=== PATIENT | female | born 1960 | race African-American/Black ===

== ENCOUNTER 2017-04-12 01:11 | Emergency (ER) | payer OTHER ==
[~2017-04-12] VITALS: Ht 157.5 cm; Wt 102.5 kg
[~2017-04-12 01:11] MED LIST: ALBUTEROL SULF8.5 GM INH; AMOXICILLIN500 MG ORAL; AZITHROMYCIN250 MG ORAL; CYCLOBENZAPRINE10 MG ORAL; HYDROCODON-ACE1 EA15 ORAL; IBUPROFEN600 MG ORAL; KEFLEX500 MG ORAL; NKM; NORCO 5-325 TA1 EACH ORAL; NORCO 5-325 TA1 EACH PO; NORCO1 EA ORAL; PREDNISONE20 MG ORAL
[2017-04-12] MEDS ORDERED: NKM (01:20)
[2017-04-12 01:25] VITALS: BP 166/92
[2017-04-12 01:30] VITALS: BP 159/91
[2017-04-12] MEDS ORDERED: AUGMENTIN 875-1 EAC1 ORAL (01:42)
[2017-04-12] MEDS ORDERED: PSEUDOEPHEDRINE30 MG PO (01:42)
[2017-04-12] MEDS ORDERED: FLONASE ALLERG9.9 ML NS (01:42)
--- NOTE | 2017-04-12 02:23 | Emergency Room Report ---
History of Present Illness General Chief Complaint: Sore Throat Source: Patient Present Illness HPI 57YOF walk-in with 3-4 days sore throat, sinus pressure/congestion. Took "old" amoxicillin Rx she had from PMD from last month that she was given for ear infection - taking 3x a day without improvement in sore throat or sinus congestion. Denies history of HTN, sinus infection. Denies cough, chest pain, SOB, fever/chills. Allergies: Coded Allergies: SHELLFISH DERIVED (Verified Allergy, Intermediate, Hives, 04/12/17) Patient History Past Medical History: none Past Surgical History: none Pertinent Family History: none Social History: Denies: alcohol use, drug use, smoking Last Menstrual Period: n/a Now: No Immunizations: UTD Reviewed Nursing Documentation: PMH: Agreed, PSxH: Agreed Nursing Documentation-PMH Past Medical History: No Stated History Review of Systems All Other Systems: negative except mentioned in HPI Physical Exam Vital Signs Date Time Temp Pulse Resp B/P Pulse Ox O2 Delivery O2 Flow Rate FiO2 04/12/17 01:13 98.2 79 16 166/92 96 Room Air Sp02 EP Interpretation: reviewed, normal General Appearance: normal inspection, well appearing, no apparent distress, alert, GCS 15, non-toxic Head: normocephalic, atraumatic Eyes: bilateral eye EOMI, bilateral eye PERRL ENT: normal ENT inspection, hearing grossly normal, normal pharynx, no angioedema, normal voice, TMs + canals normal, uvula midline, nasal congestion, other - Frontal sinus ttp on exam Neck: normal inspection, full range of motion, supple, no bony tend Respiratory: normal inspection, lungs clear, normal breath sounds, no respiratory distress, no retraction, no wheezing Cardiovascular #1: regular rate, rhythm, no edema Gastrointestinal: normal inspection, normal bowel sounds, non tender, soft, no guarding, no hernia Genitourinary: no CVA tenderness Musculoskeletal: normal inspection, back normal, normal range of motion, Anne' s Sign negative Neurologic: normal inspection, alert, oriented x3, responsive, 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, motor strength/tone normal, speech normal Psychiatric: normal inspection, judgement/insight normal, mood/affect normal Skin: normal inspection, normal color, no rash Medical Decision Making Diagnostic Impression: Primary Impression: Sore throat Additional Impression: Acute sinusitis Qualified Codes: J01.10 - Acute frontal sinusitis, unspecified ER Course 57YOF with 5 days sore throat, sinus congestion No obvious source of bacterial infection in oropharynx, ears, lungs, skin, abdomen on exam VSS Low suspicion for PNA or other acute bacterial process No signs of strep Likely acute sinusitis DC home Understands to return for worsening symptoms - Advised STOP amoxicillin - Rx Augmentin for sinusitis - Rx flonase, sudafed for symptom relief Last Vital Signs Date Time Temp Pulse Resp B/P Pulse Ox O2 Delivery O2 Flow Rate FiO2 04/12/17 01:13 98.2 79 16 166/92 96 Room Air Status: improved Disposition: HOME, SELF-CARE Condition: Improved Scripts Fluticasone Propionate (Flonase Allergy Relief) 9.9 Ml [place].susp 9.9 ML NS BID for sinus congestion for 7 Days, #1 UNIT Prov: AARON DE LA ROSA M.D. 04/12/17 Pseudoephedrine Hcl* (SUDAFED*) 30 Mg Tablet 30 MG PO BID for sinus congestion for 3 Days, #10 TAB Prov: AARON DE LA ROSA M.D. 04/12/17 Amoxicillin/Potassium Clav 875-125* (AUGMENTIN 875-125 TABLET*) 1 Each Tablet 1 TAB ORAL TWICE A DAY for 7 Days, #14 TAB Prov: AARON DE LA ROSA M.D. 04/12/17 Patient Instructions: Sinusitis, Adult, [id number] Additional Instructions: STOP taking Amoxicillin - Take Augmentin twice daily for 1 week - Take sudafed and flonase as prescribed for sinus congestion AARON DE LA ROSA M.D. Apr 12, 2017 02:23
== END 2017-04-12 01:50 | disposition home or self-care (01) ==
LOC: EMR 01:50
DX: J02.9 Acute pharyngitis, unspecified (principal); J01.10 Acute frontal sinusitis, unspecified; Z91.013 Allergy to seafood
CPT/HCPCS: 99284

== ENCOUNTER 2019-03-11 02:01 | Emergency (ER) | payer MEDICAID, OTHER ==
[~2019-03-11] VITALS: Ht 157.5 cm; Wt 103.4 kg
[~2019-03-11 02:01] MED LIST changes: +AUGMENTIN 875-1 EAC1 ORAL; +FLONASE ALLERG9.9 ML NS; +PSEUDOEPHEDRINE30 MG PO
[2019-03-11] MEDS ORDERED: OMEPRAZOLE10 M1 ORAL (02:10)
[2019-03-11 02:13] VITALS: BP 123/82
--- NOTE | 2019-03-11 02:13 | NUR ---
ED Nurse Note: Patient walked into ED c/o inflammation in the right eye that started yesterday
[2019-03-11] MEDS ORDERED: POLYTRIM OP SOL10 ML OPHTHALM (02:29)
--- NOTE | 2019-03-11 02:30 | Emergency Room Report ---
History of Present Illness General Chief Complaint: Eye Problems Source: Patient Present Illness [facility] This is a 58-year-old female with no past medical history. She presents with chief complaint of right eye itching and discharge. Onset for last 2 days. Now the left eye is been affected. Worse when she rubbing it. There is some drainage. Some tearing and swelling to the lid. No other complaint. No foreign body. No trauma. No problem with vision. Allergies: Coded Allergies: SHELLFISH DERIVED (Verified Allergy, Intermediate, Hives, 04/12/17) Patient History Past Medical History: see triage record, old chart reviewed Past Surgical History: other Pertinent Family History: none Social History: Denies: smoking Last Menstrual Period: n/a Now: No Immunizations: other Reviewed Nursing Documentation: PMH: Agreed; PSxH: Agreed Nursing Documentation-PMH Past Medical History: No Stated History Review of Systems Eye: Reports: tearing, discharge; Denies: eye pain, blurred vision ENT: Denies: ear pain, nose congestion, throat swelling Respiratory: Denies: cough, shortness of breath Cardiovascular: Denies: chest pain, palpitations Gastrointestinal: Denies: abdominal pain, diarrhea, nausea, vomiting Musculoskeletal: Denies: back pain, joint pain Skin: Denies: rash Neurological: Denies: headache, numbness Endocrine: Denies: increased thirst, increased urine Hematologic/Lymphatic: Denies: easy bruising All Other Systems: negative except mentioned in HPI Physical Exam Vital Signs Date Time Temp Pulse Resp B/P (MAP) Pulse Ox O2 Delivery O2 Flow Rate FiO2 03/11/19 02:06 97.5 75 18 98 Room Air 03/11/19 02:13 123/82 vitals normal Sp02 EP Interpretation: reviewed, normal General Appearance: well appearing, no apparent distress, alert Head: normocephalic, atraumatic Eyes: right eye other - Right eye with discharge. There is some edema to the lower eyelid from blocked tear ducts.; bilateral eye PERRL, bilateral eye EOMI ENT: hearing grossly normal, normal pharynx Neck: full range of motion, supple, no meningismus Respiratory: chest non-tender, lungs clear, normal breath sounds Cardiovascular #1: regular rate, rhythm, no murmur Gastrointestinal: normal bowel sounds, non tender, no mass, no organomegaly, no bruit, non-distended Musculoskeletal: back normal, gait/station normal, normal range of motion Psychiatric: mood/affect normal Skin: warm/dry Medical Decision Making Diagnostic Impression: Primary Impression: Conjunctivitis Qualified Codes: H10.31 - Unspecified acute conjunctivitis, right eye ER Course Patient with conjunctivitis. No evidence of any foreign body. No evidence of any globe rupture. We'll discharge home with antibiotic drops. Last Vital Signs Date Time Temp Pulse Resp B/P (MAP) Pulse Ox O2 Delivery O2 Flow Rate FiO2 03/11/19 02:13 97.5 95 18 123/82 98 Room Air Status: unchanged Disposition: HOME, SELF-CARE Condition: Stable Scripts Polymyxin/Trimethoprim (Polytrim Eye Drops) 10 Ml Drops 2 DROP OPHTHALM THREE TIMES A DAY, #1 EA Instill in affected eye for 7 days Prov: Rolan Ramirez MD 03/11/19 Patient Instructions: Bacterial Conjunctivitis, [id number] Additional Instructions: Treat both eyes. Clean lashes baby shampoo. Don't rub eyes. Follow-up with your doctor in 7 days for recheck. Return if worse. Rolan Ramirez MD March 11, 2019 02:30
[2019-03-11 02:34] VITALS: BP 123/82
--- NOTE | 2019-03-11 02:35 | NUR ---
ER DISCHARGE NOTE: Patient is cleared to be discharged per ERMD, pt is aox4, on room air, with stable vital signs. pt was given dc and prescription instructions, pt was able to verbalize understanding, pt id band removed. pt is able to ambulate with steady gait. pt took all belongings.
== END 2019-03-11 02:34 | disposition home or self-care (01) ==
LOC: EMR 02:31
DX: H10.31 Unspecified acute conjunctivitis, right eye (principal); Z91.013 Allergy to seafood
CPT/HCPCS: 99282